=== PATIENT | female | born 1960 | race Caucasian/White ===

== ENCOUNTER 2021-03-18 21:32 | Emergency (ER) | payer BC ==
[2021-03-18 22:05] LABS: #Basophils 0.1 thou/uL (0.0-0.2); #Eosinphils 0.3 thou/uL (0.0-0.7); #Lymphocytes 3.7 thou/uL (1.20-3.40); #Monocytes 0.7 thou/uL (0.11-0.59); #Neutrophils 5.9 thou/uL (1.40-6.50); %Basophils 1.1 % (0.0-1.0); %Eosinophils 2.6 % (0.0-10.0); %Lymphocytes 34.7 % (21.0-51.0); %Monocytes 6.8 % (0.0-10.0); %Neutrophils 54.8 % (42.0-75.0); Hemoglobin 15.6 g/dL (12.0-16.0); Mean Corpuscular HGB CONC 32.2 g/dL (32.0-36.0); Mean Corpuscular Hemoglobin 30.6 pg (27.0-31.0); Mean Platelet Volume 6.5 fL (7.4-10.4); Platelet Count 281 thou/uL (130-400); RBC Distribution Width 11.7 % (11.5-14.5); Red Blood Cell (RBC) Count 5.11 mill/uL (4.20-5.40); White Blood Cell (WBC) Count 10.7 thou/uL (4.8-10.8)
[2021-03-18 22:23] LABS: ALT (SGPT) 31 U/L (8-55); AST (SGOT) 22 U/L (5-34); Albumin 4.5 g/dL (3.5-5.0); Alkaline Phosphatase 135 U/L (40-110); Anion Gap 17 mmol/L (10-20); BUN (Urea Nitrogen) 14 mg/dL (9.8-20.1); Bilirubin, Total 0.2 mg/dL (0.2-1.2); Calc. Creatinine Clearance 0 mL/min (70-130); Calcium 9.7 mg/dL (7.8-10.44); Carbon Dioxide 26 mmol/L (22-29); Chloride 102 mmol/L (98-107); Globulin 3.8 g/dL (2.4-3.5); Glucose 109 mg/dL (70-105); Potassium 4.2 mmol/L (3.5-5.1); Protein, Total 8.3 g/dL (6.0-8.3); Sodium 141 mmol/L (136-145)
[2021-03-18] MEDS ORDERED: predniSONE 20 MG TAB ONE (22:56)
== END 2021-03-18 23:00 | disposition home or self-care (01) ==
LOC: NAV ERS 21:32
DX: J20.9 Acute bronchitis, unspecified (principal); E78.5 Hyperlipidemia, unspecified; I10 Essential (primary) hypertension; Z79.899 Other long term (current) drug therapy
CPT/HCPCS: 71045; 80053; 83605; 83880; 84484; 85025; J7512; J7620

== ENCOUNTER 2022-04-03 20:54 | Emergency (ER) | payer BC ==
[2022-04-03] MEDS ORDERED: Aspirin Chewable 81 MG TAB ONE (21:39)
[2022-04-03 21:52] LABS: #Basophils 0.1 thou/uL (0.0-0.2); #Eosinphils 0.1 thou/uL (0.0-0.7); #Lymphocytes 4.1 thou/uL (1.20-3.40); #Monocytes 1.6 thou/uL (0.11-0.59); #Neutrophils 14.2 thou/uL (1.40-6.50); %Basophils 0.4 % (0.0-1.0); %Eosinophils 0.3 % (0.0-10.0); %Lymphocytes 20.6 % (21.0-51.0); %Monocytes 8.2 % (0.0-10.0); %Neutrophils 70.5 % (42.0-75.0); Mean Corpuscular HGB CONC 33.1 g/dL (32.0-36.0); Mean Corpuscular Hemoglobin 30.7 pg (27.0-31.0); Mean Corpuscular Volume 92.8 fl (78.0-98.0); Mean Platelet Volume 6.4 fL (7.4-10.4); Platelet Count 318 10x3/uL (130-400); RBC Distribution Width 11.9 % (11.5-14.5); Red Blood Cell (RBC) Count 4.55 mill/uL (4.20-5.40); White Blood Cell (WBC) Count 20.1 10x3/uL (4.8-10.8)
[2022-04-03 21:59] LABS: ALT (SGPT) 75 U/L (8-55); AST (SGOT) 57 U/L (5-34); Albumin 3.8 g/dL (3.5-5.0); Alkaline Phosphatase 106 U/L (40-110); Anion Gap 18 mmol/L (10-20); BUN (Urea Nitrogen) 29 mg/dL (9.8-20.1); Bilirubin, Total 0.2 mg/dL (0.2-1.2); Calc. Creatinine Clearance 0 mL/min (70-130); Calcium 8.5 mg/dL (7.8-10.44); Carbon Dioxide 19 mmol/L (22-29); Chloride 107 mmol/L (98-107); Estimated GFR 72; Globulin 2.2 g/dL (2.4-3.5); Glucose 207 mg/dL (70-105); Lipase 38 U/L (8-78); Potassium 4.6 mmol/L (3.5-5.1); Sodium 139 mmol/L (136-145)
[2022-04-03 22:11] LABS: SARS-CoV-2 NAA Rapid Test Not Detected (NotDetected)
== END 2022-04-03 22:42 | disposition short-term general hospital (02) ==
LOC: NAV ERS 20:54
DX: I47.1 Supraventricular tachycardia (principal); J40 Bronchitis, not specified as acute or chronic; I10 Essential (primary) hypertension; Z79.899 Other long term (current) drug therapy; Z20.822 Contact with and (suspected) exposure to COVID-19
CPT/HCPCS: 71045; 80053; 82553; 83690; 84443; 84484; 85025; 93005; 94760; 96361; 96374; U0002

== ENCOUNTER 2022-04-12 14:25 | Emergency (ER) | payer BC ==
[2022-04-12] MEDS ORDERED: Adenosine 6 MG/2 ML VIAL ONE ×2 (14:42)
[2022-04-12 15:04] LABS: Hemoglobin 17.4 g/dL (12.0-16.0); MDiff Complete? YES; Manual Diff?? YES; Mean Corpuscular HGB CONC 31.5 g/dL (32.0-36.0); Mean Corpuscular Hemoglobin 29.9 pg (27.0-31.0); Mean Corpuscular Volume 94.8 fl (78.0-98.0); Mean Platelet Volume 6.6 fL (7.4-10.4); Platelet Count 336 10x3/uL (130-400); RBC Distribution Width 12.4 % (11.5-14.5); Red Blood Cell (RBC) Count 5.83 mill/uL (4.20-5.40); White Blood Cell (WBC) Count 21.4 10x3/uL (4.8-10.8)
[2022-04-12 15:20] LABS: ALT (SGPT) 28 U/L (8-55); AST (SGOT) 15 U/L (5-34); Albumin 4.8 g/dL (3.5-5.0); Alkaline Phosphatase 130 U/L (40-110); Anion Gap 16 mmol/L (10-20); BUN (Urea Nitrogen) 23 mg/dL (9.8-20.1); Bilirubin, Total 0.5 mg/dL (0.2-1.2); Calc. Creatinine Clearance 0 mL/min (70-130); Carbon Dioxide 28 mmol/L (22-29); Chloride 100 mmol/L (98-107); Estimated GFR 64; Globulin 3.1 g/dL (2.4-3.5); Glucose 178 mg/dL (70-105); Potassium 4.3 mmol/L (3.5-5.1); Protein, Total 7.9 g/dL (6.0-8.3); Sodium 140 mmol/L (136-145)
[2022-04-12] MEDS ORDERED: Aspirin Chewable 81 MG TAB ONE ×2 (15:42→15:43)
[2022-04-12 16:23] LABS: Eosinophils 2 % (0-10); Lymphocytes 29 % (21-51); Monocytes 7 % (0-10); Neutrophil 61 % (42-75); Platelet Morphology Comment Appears Adequate; Reactive Lymphocytes 1 % (0-10)
== END 2022-04-12 17:26 | disposition short-term general hospital (02) ==
LOC: NAV ERS 14:25
DX: I47.1 Supraventricular tachycardia (principal); R77.8 Other specified abnormalities of plasma proteins; E78.5 Hyperlipidemia, unspecified; J45.909 Unspecified asthma, uncomplicated
CPT/HCPCS: 71045; 80053; 82553; 84484; 85025; 93005; 96374; J0153